=== PATIENT | male | born 1960 | race Caucasian/White ===

== ENCOUNTER 2019-12-01 15:00 | Inpatient (IN) | payer OTHER, SELFPAY ==
--- NOTE | ~2019-12-01 | XR_ITS ---
EXAMINATION: XR chest 1V portable DATE: 12/06/2019 05:45 INDICATION: COVID 19 pneumonia TECHNIQUE: frontal view of the chest was obtained. COMPARISON: Chest radiograph dated 12/05/2019 FINDINGS: No interval change in diffuse bilateral patchy airspace opacities. No pleural effusion or pneumothora x. The cardiomediastinal silhouette is normal. IMPRESSION: 1. Unchanged diffuse bilateral patchy airspace opacities consistent with pneumonia. Reviewed, dictated and finalized at location A. IMPRESSION: 1. Unchanged diffuse bilateral patchy airspace opacities consistent with pneumo juanita.
--- NOTE | ~2019-12-01 | XR_ITS ---
EXAMINATION: XR chest 1V portable DATE: 12/04/2019 05:28 INDICATION: TECHNIQUE: COMPARISON: Chest radiograph dated FINDINGS: No significant interval change in patchy bilateral airspace opacities. No pneumothorax or definitive pleural effusion. The cardiomediastinal silhouette is normal. IMPRESSION: 1. Unchanged diffuse bilateral lung disease consistent with given history of pneumonia. Reviewed, dictated and finalized at location A. IMPRESSION: 1. Unchanged diffuse bilateral lung disease consistent with given history of pn eumonia.
--- NOTE | ~2019-12-01 | XR_ITS ---
XR chest 1V portable DATE: 12/07/2019 05:51 INDICATION: Covid 19 pneumonia TECHNIQUE: Portable AP chest on 12/07/2019 at 0522 hours COMPARISON: 12/06/2019 portable AP chest at 0521 hours FINDINGS: There is patchy infiltrates throughout both lung soler, with little interval change since 12/06/2019. Heart size appears within normal limits. No pleural effusion or pneumothorax. Note tubes or lines noted. IMPRESSION: No similar change of patchy bilateral pulmonary infiltrates since 12/06/2019 Reviewed, dictated and finalized at location A.
--- NOTE | ~2019-12-01 | XR_ITS ---
EXAMINATION: XR chest 1V portable DATE: 12/03/2019 05:58 INDICATION: COVID 19 pneumonia TECHNIQUE: frontal view of the chest was obtained. COMPARISON: Chest radiograph dated 12/02/2019 FINDINGS: No significant interval change accounting for changes in patient positioning in patchy bilateral airs pace opacities. No pneumothorax or definitive pleural effusion. The cardiomediastinal silhouette is n ormal. IMPRESSION: 1. Unchanged diffuse bilateral lung disease consistent with given history of pneumonia. Reviewed, dictated and finalized at location A. IMPRESSION: 1. Unchanged diffuse bilateral lung disease consistent with given history of pn eumonia.
--- NOTE | ~2019-12-01 | US_ITS ---
EXAMINATION: US renal BI DATE: 12/08/2019 12:01 INDICATION: Hematuria. TECHNIQUE: Multiple ultrasound grayscale images of the kidneys were obtained. COMPARISON: None. FINDINGS: The right kidney measures 10.7 x 6.2 x 6.2 cm. The left kidney measures 10.6 x 5.9 x 5.5 cm. The kidn eys demonstrate normal parenchymal echogenicity. There is no hydronephrosis. The bladder is normal. IMPRESSION: 1. Normal kidneys. No hydronephrosis. Reviewed, dictated and finalized at location A.
--- NOTE | ~2019-12-01 | XR_ITS ---
XR chest 1V portable 12/02/2019 08:46 Indication: Pneumonia. Covid-19 Procedure: AP portable chest Comparison: 03/26/2017 Findings: Diffuse bilateral airspace disease. Cardiomegaly. No significant effusion or pneumothorax. Impression: 1: Diffuse bilateral airspace disease may represent pneumonia and/or edema. Reviewed, dictated and finalized at location B. Impression: 1: Diffuse bilateral airspace disease may represent pneumonia and/or edema.
--- NOTE | ~2019-12-01 | XR_ITS ---
EXAMINATION: XR chest 1V portable DATE: 12/05/2019 05:49 INDICATION: COVID 19 pneumonia TECHNIQUE: frontal view of the chest was obtained. COMPARISON: Chest radiograph dated 12/04/2019 through 12/02/2019 FINDINGS: Over the past 4 days there has been a gradual increase in diffuse bilateral patchy airspace opacities consistent with worsening pneumonia. No pleural effusion or pneumothorax. The cardiomediastinal silh ouette is normal. IMPRESSION: 1. Very gradual progression over the past 4 days in diffuse bilateral lung disease consistent with wo rsening pneumonia. Reviewed, dictated and finalized at location A. IMPRESSION: 1. Very gradual progression over the past 4 days in diffuse bilateral lung dise ase consistent with worsening pneumonia.
--- NOTE | 2019-12-01 15:25 | ADMGEN ---
This patient, Rico Cardenas, was admitted to Intensive Care Unit-4. Patient/family oriented to hospital policies and general routines including ID bracelet, bed and alarms, visiting hours, pain management, procedures, bathroom and other care routines, personal items, smoking policy, room service/diet, and visiting hours. Information on how to activate the Rapid Response Team has been discussed. Patient/Family are encouraged to report perceived risks to care and to ask questions if they do not understand what they are told or what they should do.
[2019-12-01 15:26] VITALS: BMI 45.1
[2019-12-01 16:00] VITALS: BP 139/79; PULSE 81; RESP 37; TEMP 37.7; O2SAT 98
--- NOTE | 2019-12-01 17:45 | PM.IMHP ---
H&P: HPI History of Present Illness Date/Time: 12/01/19 17:45 Chief complaint: COVID Pneumonia Narrative: Rico Cardenas is a 59-year-old male with hyperlipidemia and factor 5 Leiden mutation without history of venous thromboembolism who is being directly admitted to the hospitalist service from the emergency department at [facility] [place] for further treatment of COVID pneumonia. He developed symptoms of such early last week to include headache, congestion, nonproductive cough, shortness of breath, and fever up to 102?. On 11/26/2019 he tested positive for COVID at a [facility] urgent care and he continues to have a dry nonproductive cough and overwhelming fatigue with progressive shortness of breath. He presented to the ED this morning due to increasing shortness of breath, with anSpO2 of 66% on room air and a chest x-ray revealed bilateral pulmonary infiltrates consistent with pneumonia. He is being transferred in this setting for higher level of care. At the time of my evaluation he is feeling a bit better in the last 4 hours after receiving dexamethasone. In addition to the symptoms as detailed above, he has had a poor appetite with about a 15 lb weight loss and he also mentions painless hematuria this morning which has cleared throughout the day. He denies anosmia, dysgeusia, odynophagia, chest pain, pleuritic pain, palpitations, orthopnea, PND, lower extremity edema, nausea, vomiting, diarrhea, and dysuria. He has no history of venous thromboembolism. Review of Systems Review of Systems: Narrative: Twelve systems were reviewed with pertinent positives and negatives as per HPI. No exertional chest pain, pleuritic pain, orthopnea, PND, or lower extremity edema. No calf pain or tenderness. Despite being positive for factor 5 Leiden mutation he has no history of venous thromboembolism. Except as documented, all other systems were reviewed and are negative. [facility] Past Medical History Medical History (Updated 12/01/19 @ 20:04 by Sailaja Rocha PA-C) Factor 5 Leiden mutation, heterozygous Hyperlipidemia Osteoarthritis Skin cancer Surgical History Surgical History (Updated 12/01/19 @ 19:57 by Sailaja Rocha PA-C) History of arthroscopy of both knees History of left hip replacement History of right hip replacement (~2014) Status post cervical spinal fusion (~1994) C5-C6. Status post surgical removal of malignant neoplasm of skin Excision of several small basal cell carcinomas. Family History Family History Other Factor V Leiden Social History Social History (Updated 12/01/19 @ 19:57 by Sailaja Rocha PA-C) Social History: Surrogate decision maker: Cece Cardenas, spouse. Code status: Full code. Smoking status: Never smoker Second hand tobacco smoke exposure: No Alcohol intake: unknown Substance use: never Additional living arrangements comments: He and his recently moved to [place]. They have 2 grown children. Additional occupation/education comments: Employed at [employer]. Gender identity (if verbalized by the patient): Male Spiritual care concerns: No Meds Home Medications and Allergies Home Medications Medication Instructions Recorded Confirmed Type aspirin 81 mg PO DAILY 12/01/19 12/01/19 History atorvastatin 20 mg PO DAILY 12/01/19 12/01/19 History Allergies Allergy/AdvReac Type Severity Reaction Status Date / Time Penicillins Allergy Intermediate HIVES Verified 04/08/16 11:39 Vital Signs Vital Signs - 24 hr 12/01/19 16:00 Temperature 100 F H Pulse Rate 81 Respiratory Rate 37 H Blood Pressure 139/79 Pulse Oximetry 98 Exam Narrative: Exam Narrative: General: Moderately ill-appearing male in the semi-Sunshine position in bed in no acute distress. Weight: 147 kg. BMI: 45.2. HEENT: Pupils reactive. Extraocular motions intact.
[2019-12-01 18:00] VITALS: PULSE 81
[2019-12-01] MEDS: DEXAMETHASONE SOD PHOS INJ 4 MG/ML VIAL 6 MG IV PUSH (18:38)
[2019-12-01 20:00] VITALS: BP 139/77; PULSE 78; PULSE 80; RESP 35; TEMP 37.6; O2SAT 92
[2019-12-01 20:05] LABS: Hematocrit 38.3 % (42.0-52.0); Hemoglobin 13.1 g/dL (14.0-18.0); Mean Corpuscular HGB Conc 34.2 g/dl (32-36); Mean Corpuscular Hemoglobin 31.9 pg (26-34); Mean Corpuscular Volume 93.2 fl (80-100); Mean Platelet Volume 9.2 fl (7.4-10.4); Platelet Count Result 236 k/mm3 (150-375); Red Blood Count 4.11 M/mm3 (4.6-6.20); Red Cell Distribution Width 12.4 % (11.5-14.5); White Blood Count 14.1 K/mm3 (4.5-10.0)
[2019-12-01 20:17] LABS: D Dimer 1.09 ug/mL (<0.48)
[2019-12-01 20:20] LABS: Alanine Aminotransferase 47 U/L (4-50); Albumin Level 3.6 g/dL (3.5-5.1); Alkaline Phosphatase 96 U/L (38-126); Anion Gap 6 mmol/L (8-16); Aspartate Amino Transferase 52 U/L (17-59); Bilirubin,Total 0.8 mg/dL (0.2-1.3); Blood Urea Nitrogen 14 mg/dL (9-20); Calcium 8.4 mg/dL (8.4-10.2); Carbon Dioxide 32 mmol/L (22-30); Chloride 92 mmol/L (98-107); Estimated CRCL calculation 126 ml/min; Estimated Glomerular Filt Rate > 60; Glucose 200 mg/dL (75-110); Lactate Dehydrogenase 797 U/L (313-618); Potassium 3.9 mmol/L (3.4-5.0); Sodium 130 mmol/L (137-145)
[2019-12-01 20:35] LABS: Band Neutrophils Percent 8 % (0-6); Lymphocytes Absolute Manual 0.14 K/mm3 (1.1-4.5); Monocytes Absolute Manual 0.14 K/mm3 (0.1-0.90); Monocytes Percent Manual 1 % (3-9); Neutrophils Absolute Manual 13.81 K/mm3 (1.3-6.7); Neutrophils Percent Manual 90 % (46-73); Platelet Estimate Adequate (Adequate); Total Cells Counted 100
[2019-12-01 20:45] LABS: CRP 37.7 mg/dL (<1.0)
[2019-12-01] MEDS: REMDESIVIR 200 MG/NS 250 ML 200 MG/250 ML BAG 250 MG IVPB (21:31)
[2019-12-01 21:46] LABS: Add Urine Microscopic? YES; Appearance Urine Clear (Clear); Bacteria Urine Trace /hpf; Bilirubin Urine Negative (Negative); Blood Urine 3+ (Negative); Color Urine Yellow (Yellow); Glucose Urine UA Negative (Negative); Ketones Urine Negative (Negative); Leukocyte Esterase Ur Negative LEU/UL (Negative); Nitrate Urine Negative (Negative); Protein Urine 1+ mg/dL (Negative); Specific Grav Ur 1.009 (1.001-1.035); WBC Urine 0-3 /hpf
[2019-12-01 21:54] LABS: Creatinine Urine 41.5 mg/dL
[2019-12-01 21:59] LABS: Sodium Urine Random 29 meq/L
[2019-12-01 22:00] VITALS: PULSE 73
[2019-12-01 22:23] VITALS: O2SAT 94
[2019-12-02] VITALS (19 sets, daily range): BP systolic 110–156; BP diastolic 70–82; PULSE 61–79; RESP 19–38; TEMP 36.6–37.5; O2SAT 91–99
[2019-12-02 04:59] LABS: Alanine Aminotransferase 55 U/L (4-50)
[2019-12-02] MEDS: ATORVASTATIN 20 MG TABLET PO (08:17)
[2019-12-02] MEDS: ASPIRIN 81 MG CHEWABLE TABLET PO (08:17)
[2019-12-02] MEDS: DEXAMETHASONE SOD PHOS INJ 4 MG/ML VIAL 6 MG IV PUSH (08:17)
--- NOTE | 2019-12-02 08:41 | WPDCNINT ---
Assessment and Plan Assessment and plan (1) Acute respiratory failure with hypoxia: Code(s): J96.01 - Acute respiratory failure with hypoxia Status: Acute Assessment and Plan: patient with acute hypoxic respiratory failure likely related to COVID-19 pneumonia - patient was also febrile at home, has been started on azithromycin and ceftriaxone ( start date 12/01/2019) - continue high-flow oxygen therapy will with non-rebreather mask, maintain O2 sats greater 92% - complaints of cough, will add Tessalon Perles (2) Pneumonia due to COVID-19 virus: Code(s): U07.1 - COVID-19; J12.89 - Other viral pneumonia Status: Acute Assessment and Plan: patient positive for SARS-CoV-2 PCR, presents with COVID-19 pneumonia with hypoxia - continue antibiotics as above - bronchodilators - patient started on Remdesivir and dexamethasone - patient to receive 1 unit convalescent plasma - continue airborne, droplet and contact isolation /precautions - inflammatory markers are elevated, will continue to follow (3) Hematuria: Code(s): R31.9 - Hematuria, unspecified Status: Acute Assessment and Plan: resolved will continue to monitor if he develops any hematuria will have Urology evaluate the patient (4) DVT prophylaxis: Code(s): Z29.9 - Encounter for prophylactic measures, unspecified Status: Acute Assessment and Plan: continue Lovenox 40 mg SQ q.12 hours (5) Dietary counseling and surveillance: Code(s): Z71.3 - Dietary counseling and surveillance Status: Acute Assessment and Plan: patient on regular diet Additional Plan discussed with patient updated with his condition and plan of care. I answered all questions he is aware that he is receiving Remdesivir, dexamethasone and will be transfused 1 unit of convalescent plasma today code status: Full code critical care time spent: 45 minutes Due to a high probability of clinically significant, life threatening deterioration, the patient required my highest level of preparedness to intervene emergently and I personally spent this critical care time directly and personally managing the patient. This critical care time included obtaining a history; examining the patient; pulse oximetry; ordering and review of studies; arranging urgent treatment with development of a management plan; evaluation of patient's response to treatment; frequent reassessment; and discussions with other providers. It was exclusive of separately billable procedures and treating other patients and teaching time. Please see Assessment and Plan section and the rest of the note for further information on patient assessment and treatment [employer] Consult Note Consult date: 12/02/19 Time Seen: 07:19 Reason for consult: COVID-19 pneumonia, acute hypoxic respiratory failure HPI: Rico Cardenas is a 59 year old male with past medical history of factor 5 leiden mutation, hyperlipidemia, osteoarthritis, history of skin cancer status post surgical removal, [place] [facility] [place] [facility] with worsening symptoms of headache, congestion, nonproductive cough, shortness of breath and fevers up to 102? F. patient's oxygen requirements at the outside hospital increasing and so he was transferred to [facility] on 12/01/2019 for further management and higher level of care. In the ED at the outside hospital patient's O2 sats were 66% on room air and chest x-ray revealed bilateral pulmonary infiltrates consistent with pneumonia. Patient also complained of poor appetite and painless hematuria which cleared up during the day of admission. Patient was on 10-15 L high-flow O2 nasal cannula and overnight was hypoxic with increased oxygen requirements and currently on 85% FiO2, 60 L flow rate on Airvo therapy along with a non-rebreather mask. 12/02/2019: Patient seen and examined the ICU this morning, is awake, alert, joshua
[2019-12-02] MEDS: ENOXAPARIN 40 MG/0.4 ML SYRINGE SUB-Q ×2 (09:03→21:15)
[2019-12-02 09:22] LABS: INR 1.1; Prothrombin Time 13.4 Seconds (11.1-14.7)
[2019-12-02 09:24] LABS: Alanine Aminotransferase 67 U/L (4-50); Alkaline Phosphatase 115 U/L (38-126); Anion Gap 9 mmol/L (8-16); Aspartate Amino Transferase 71 U/L (17-59); Bilirubin,Total 0.8 mg/dL (0.2-1.3); Blood Urea Nitrogen 16 mg/dL (9-20); Calcium 8.9 mg/dL (8.4-10.2); Carbon Dioxide 33 mmol/L (22-30); Chloride 93 mmol/L (98-107); Estimated CRCL calculation 122 ml/min; Estimated Glomerular Filt Rate > 60; Glucose 166 mg/dL (75-110); Magnesium 2.6 mg/dL (1.6-2.3); Phosphorus 2.9 mg/dL (2.5-4.5); Sodium 135 mmol/L (137-145)
[2019-12-02 09:25] LABS: D Dimer 1.06 ug/mL (<0.48)
[2019-12-02 10:48] LABS: Lactate Dehydrogenase 886 U/L (313-618)
[2019-12-02 11:20] LABS: CRP 35.6 mg/dL (<1.0)
[2019-12-02] MEDS: BENZONATATE 100 MG CAPSULE 200 MG PO ×2 (12:22→17:15)
--- NOTE | 2019-12-02 17:52 | PM.IMPN ---
Progress Note: A&P Assessment and Plan (1) Acute respiratory failure with hypoxia: Code(s): J96.01 - Acute respiratory failure with hypoxia Status: Acute Assessment and Plan: secondary to COVID pneumonia. high-flow oxygen at present time. And will wean as tolerated. metered dose inhalers and p.o. prednisone (2) Bilateral pneumonia: Code(s): J18.9 - Pneumonia, unspecified organism Status: Acute Assessment and Plan: suspect off COVID pneumonia but has empirically placed on antibiotics initially also since has had fevers some 7 days. cultures and antigen markers pending (3) COVID-19: Code(s): U07.1 - COVID-19 Status: Acute Assessment and Plan: receiving Decadron (D#2), remdesivir(D#2), and convalescent plasma today (4) Hyponatremia: Code(s): E87.1 - Hypo-osmolality and hyponatremia Status: Acute Assessment and Plan: 4.0 and continue to monitor (5) Hematuria: Code(s): R31.9 - Hematuria, unspecified Status: Acute Assessment and Plan: few RBCs will on check renal sonogram or CT abdomen before discharge (6) Factor 5 Leiden mutation, heterozygous: Code(s): D68.51 - Activated protein C resistance Status: Acute Assessment and Plan: no history of DVT or PE in the past though there is family history. B.i.d. Lovenox for DVT prophylaxis (7) Hyperlipidemia: Code(s): E78.5 - Hyperlipidemia, unspecified Status: Inactive Assessment and Plan: continue statin Subjective Date/time seen: 12/02/19 17:52 Interval history: date of visit 12/01. 59-year-old white male with history hyperlipidemia and factor 5 Leiden mutation admitted from [facility] with respiratory failure and COVID pneumonia. Comfortable in bed now with high-flow oxygen. Appetite fair no distortion of smell or taste.. Dry cough Exam Narrative: Exam Narrative: blood pressure 156/70 pulse 74 sat 91% on high-flow O2 85% FiO2 afebrile General: Moderately ill-appearing male lying comfortably in bed. HEENT: Pupils reactive. sclera anicteric on high-flow O2 now. Neck: Supple. No JVD. Respiratory: Tachypneic but speaking in full sentences. He does not seem in any significant respiratory distress. Scattered crackles throughout both bases. Cardiovascular: Regular rate and rhythm with S1-S2. Gastrointestinal: Abdomen is soft, nontender, and nondistended with positive bowel sounds. Skin: Warm and dry. No rash or lesions Extremities: No cyanosis, clubbing, or edema. Radial and pedal pulses intact. Neurological: Alert. Cranial nerves 2-12 are grossly intact. No gross focal deficits to casual conversation. Psychiatric: Pleasant and cooperative with normal mood and affect. Judgment and insight intact. Objective Data Vital Signs Vital Signs: Vital Signs - 24 hr 12/01/19 18:00 12/01/19 20:00 12/01/19 22:00 Temperature 37.6 C H Pulse Rate 81 80 73 Respiratory Rate 35 H Blood Pressure 139/77 Pulse Oximetry 92 12/01/19 22:23 12/02/19 00:00 12/02/19 02:00 Temperature 37.5 C Pulse Rate 74 67 Respiratory Rate 23 H Blood Pressure 137/79 Pulse Oximetry 94 96 12/02/19 04:00 12/02/19 06:00 12/02/19 08:00 Temperature 37.3 C 36.6 C Pulse Rate 71 69 79 Respiratory Rate 34 H 22 H Blood Pressure 131/75 110/76 Pulse Oximetry 95 93 12/02/19 09:07 12/02/19 10:00 12/02/19 12:00 Temperature 36.6 C Pulse Rate 72 75 Respiratory Rate 24 H Blood Pressure 143/82 H Pulse Oximetry 93 94 12/02/19 14:00 12/02/19 16:00 Temperature 36.8 C Pulse Rate 67 74 Respiratory Rate 25 H 19 Blood Pressure 151/78 H 156/78 H Pulse Oximetry 99 91 Intake/Output Intake/Output: Intake & Output 11/29/19 11/30/19 12/01/19 12/02/19 23:59 23:59 23:59 23:59 Intake Total 810 1170 Output Total 790 1925 Balance 20 -755 Meds/Results Medications: Active Medications Generic Name Dos
[2019-12-02] MEDS: REMDESIVIR 100 MG/NS 250 ML 100 MG/250 ML BAG 250 MG IVPB (21:15)
[2019-12-02] MEDS: SODIUM CHLORIDE 0.9% IV 250 ML 999 ML (23:27)
[2019-12-03] VITALS (16 sets, daily range): BP systolic 113–150; BP diastolic 67–83; PULSE 53–65; RESP 18–32; TEMP 36.2–37.3; O2SAT 92–99
[2019-12-03 04:09] LABS: Basophils Percent Auto 0.1 % (0.2-1.2); Hematocrit 38.4 % (42.0-52.0); Hemoglobin 13.1 g/dL (14.0-18.0); Immature Granulocyte Percent A 0.8 % (0-0.5); Lymphocytes Absolute Auto 0.65 K/mm3 (0.9-3.2); Lymphocytes Percent Auto 5.4 % (18.3-44.2); Mean Corpuscular HGB Conc 34.1 g/dl (32-36); Mean Corpuscular Volume 93.7 fl (80-100); Mean Platelet Volume 9.3 fl (7.4-10.4); Monocytes Absolute Auto 0.7 K/mm3 (0.1-0.6); Neutrophils Absolute Auto 10.5 K/mm3 (1.3-6.7); Neutrophils Percent Auto 87.7 % (45.5-73.1); Platelet Count Result 331 k/mm3 (150-375); Red Cell Distribution Width 12.6 % (11.5-14.5)
[2019-12-03 04:24] LABS: Alanine Aminotransferase 121 U/L (4-50); Albumin Level 3.4 g/dL (3.5-5.1); Alkaline Phosphatase 97 U/L (38-126); Anion Gap 4 mmol/L (8-16); Aspartate Amino Transferase 111 U/L (17-59); Bilirubin,Total 0.6 mg/dL (0.2-1.3); Blood Urea Nitrogen 20 mg/dL (9-20); Calcium 8.4 mg/dL (8.4-10.2); Carbon Dioxide 34 mmol/L (22-30); Chloride 94 mmol/L (98-107); Creatine Kinase 45 U/L (55-170); Estimated CRCL calculation 122 ml/min; Estimated Glomerular Filt Rate > 60; Glucose 150 mg/dL (75-110); Lactate Dehydrogenase 796 U/L (313-618); Magnesium 2.7 mg/dL (1.6-2.3); Phosphorus 3.3 mg/dL (2.5-4.5); Potassium 4.1 mmol/L (3.4-5.0); Sodium 132 mmol/L (137-145)
[2019-12-03 04:26] LABS: INR 1.1; Prothrombin Time 13.6 Seconds (11.1-14.7)
[2019-12-03 04:27] LABS: Partial Thromboplastin Time 29.2 SECONDS (22.3-36.8)
[2019-12-03 04:34] LABS: CRP 18.4 mg/dL (<1.0)
[2019-12-03 04:36] LABS: D Dimer 0.61 ug/mL (<0.48)
[2019-12-03] MEDS: ASPIRIN 81 MG CHEWABLE TABLET PO (08:15)
[2019-12-03] MEDS: BENZONATATE 100 MG CAPSULE 200 MG PO ×3 (08:15→17:21)
[2019-12-03] MEDS: ENOXAPARIN 40 MG/0.4 ML SYRINGE SUB-Q ×2 (08:15→20:34)
[2019-12-03] MEDS: ATORVASTATIN 20 MG TABLET PO (08:15)
[2019-12-03] MEDS: DEXAMETHASONE SOD PHOS INJ 4 MG/ML VIAL 6 MG IV PUSH (08:16)
--- NOTE | 2019-12-03 08:16 | WPDINTPN ---
Progress Note: A&P Assessment and Plan (1) Acute respiratory failure with hypoxia: Code(s): J96.01 - Acute respiratory failure with hypoxia Status: Acute Assessment and Plan: patient with acute hypoxic respiratory failure likely related to COVID-19 pneumonia - patient was also febrile at home, has been started on azithromycin and ceftriaxone ( start date 12/01/2019) - continue high-flow oxygen therapy will with non-rebreather mask, maintain O2 sats greater 92% - complaints of cough now with congestion and sputum production, continue Tessalon Perles, will add Mucinex (2) Pneumonia due to COVID-19 virus: Code(s): U07.1 - COVID-19; J12.89 - Other viral pneumonia Status: Acute Assessment and Plan: patient positive for SARS-CoV-2 PCR, presents with COVID-19 pneumonia with hypoxia - continue antibiotics as above - bronchodilators - patient started on Remdesivir and dexamethasone - received convalescent plasma on 12/02/2019 - continue airborne, droplet and contact isolation /precautions - inflammatory markers trending down, will continue to follow (3) Hematuria: Code(s): R31.9 - Hematuria, unspecified Status: Acute Assessment and Plan: resolved -will continue to monitor if he develops any hematuria will have Urology evaluate the patient (4) DVT prophylaxis: Code(s): Z29.9 - Encounter for prophylactic measures, unspecified Status: Acute Assessment and Plan: continue Lovenox 40 mg SQ q.12 hours (5) Dietary counseling and surveillance: Code(s): Z71.3 - Dietary counseling and surveillance Status: Acute Assessment and Plan: patient on regular diet Additional Plan discussed with patient updated with his condition and plan of care. I answered all questions code status: Full code critical care time spent: 33 minutes Due to a high probability of clinically significant, life threatening deterioration, the patient required my highest level of preparedness to intervene emergently and I personally spent this critical care time directly and personally managing the patient. This critical care time included obtaining a history; examining the patient; pulse oximetry; ordering and review of studies; arranging urgent treatment with development of a management plan; evaluation of patient's response to treatment; frequent reassessment; and discussions with other providers. It was exclusive of separately billable procedures and treating other patients and teaching time. Please see Assessment and Plan section and the rest of the note for further information on patient assessment and treatment Subjective Date/time seen: 12/03/19 08:16 Interval history: Reason for consult: COVID-19 pneumonia, acute hypoxic respiratory failure 12/03/2019: Patient remains on high-flow therapy, 85% FiO2, 60 L flow rate. Patient complains dry cough and states he may be starting producing some sputum. Denies any chest pain, abdominal pain, nausea, vomiting, diarrhea. No loss taste or smell. Patient is short of breath with exertion. LFTs slightly worsening. Urine output has been adequate and patient is afebrile hemodynamically stable Review of Systems Review of Systems: All systems reviewed & are unremarkable except as noted in HPI and below Exam Const: General: comfortable and no acute distress HENMT: Other: high-flow oxygen therapy via nasal cannula and a non-rebreather mask in place Eyes: Sclera: sclerae normal Pupils: Equal, round and reactive pupils present Neck: Neck: supple Resp: Effort & Inspection: normal respiratory effort Auscultation: rales, no wheezes and diminished lung sounds GI: Inspection: non-distended GI Palp: Yes Soft to palpation and No Tenderness to palpation present (GI) Auscultation: normal bowel sounds : Other: deferred Urinary Catheter: Urinary Catheter: urine dark Skin: General skin exam: normal color and no
[2019-12-03] MEDS: guaiFENesin 600 MG/DEXTROMETHORPHAN 30 MG SR TAB 12 HR 1 TAB PO ×2 (09:38→20:34)
--- NOTE | 2019-12-03 16:36 | PM.IMPN ---
Progress Note: A&P Assessment and Plan (1) Acute respiratory failure with hypoxia: Code(s): J96.01 - Acute respiratory failure with hypoxia Status: Acute Assessment and Plan: secondary to COVID pneumonia. high-flow oxygen at present time. And will wean as tolerated. metered dose inhalers and p.o dexamethasone (2) Bilateral pneumonia: Code(s): J18.9 - Pneumonia, unspecified organism Status: Acute Assessment and Plan: suspect all COVID pneumonia but has empirically placed on antibiotics initially also since has had fevers some 7 days. antigen markers pending (3) COVID-19: Code(s): U07.1 - COVID-19 Status: Acute Assessment and Plan: receiving Decadron (D#3), remdesivir(D#3), and convalescent plasma 12/01 (4) Hyponatremia: Code(s): E87.1 - Hypo-osmolality and hyponatremia Status: Acute Assessment and Plan: Na 132 today and K 4.1 and continue to monitor (5) Hematuria: Code(s): R31.9 - Hematuria, unspecified Status: Acute Assessment and Plan: few RBCs will on check renal sonogram or CT abdomen before discharge (6) Factor 5 Leiden mutation, heterozygous: Code(s): D68.51 - Activated protein C resistance Status: Acute Assessment and Plan: no history of DVT or PE in the past though there is family history. B.i.d. Lovenox for DVT prophylaxis (7) Hyperlipidemia: Code(s): E78.5 - Hyperlipidemia, unspecified Status: Inactive Assessment and Plan: continue statin Subjective Date/time seen: 12/03/19 16:36 Interval history: date of visit 12/02. 59-year-old white male with history hyperlipidemia and factor 5 Leiden mutation admitted from [facility] with respiratory failure and COVID pneumonia. Comfortable in bed now with high-flow oxygen. Appetite better and feels better overall .. Dry cough Exam Narrative: Exam Narrative: blood pressure 134/76 pulse 60 sat 92% on high-flow O2 75% at 50 L, afebrile General: lying comfortably in bed. HEENT: Pupils reactive. sclera anicteric on high-flow O2 now. Neck: Supple. No JVD. Respiratory: less Tachypneic. He does not seem in any significant respiratory distress. Scattered crackles throughout both bases. Cardiovascular: Regular rate and rhythm with S1-S2. Gastrointestinal: Abdomen is soft, nontender, and nondistended with positive bowel sounds. Skin: Warm and dry. No rash or lesions Extremities: No edema. Radial and pedal pulses intact. Neurological: Alert. . No gross focal deficits Psychiatric: Pleasant and cooperative with normal mood and affect. Judgment and insight intact. Objective Data Vital Signs Vital Signs: Vital Signs - 24 hr 12/02/19 18:00 12/02/19 19:46 12/02/19 20:00 Temperature 37.3 C Pulse Rate 71 74 Respiratory Rate 32 H 24 H Blood Pressure 152/78 H 117/73 Pulse Oximetry 93 93 96 12/02/19 20:30 12/02/19 22:00 12/02/19 23:10 Temperature Pulse Rate 70 70 62 Respiratory Rate 22 H 35 H 28 H Blood Pressure 125/73 Pulse Oximetry 96 98 98 12/02/19 23:27 12/02/19 23:43 12/02/19 23:51 Temperature 37.1 C 37.2 C 37.2 C Pulse Rate 62 63 61 Respiratory Rate 38 H 28 H 27 H Blood Pressure 121/70 120/76 129/73 Pulse Oximetry 94 94 96 12/03/19 00:00 12/03/19 02:00 12/03/19 04:00 Temperature 37.3 C 36.8 C Pulse Rate 60 59 L 62 Respiratory Rate 23 H 18 32 H Blood Pressure 121/68 126/78 116/73 Pulse Oximetry 97 93 94 12/03/19 06:00 12/03/19 07:46 12/03/19 08:00 Temperature 36.2 C L Pulse Rate 62 59 L 59 L Respiratory Rate 19 26 H 21 H Blood Pressure 114/75 150/83 H Pulse Oximetry 93 93 93 12/03/19 10:00 12/03/19 12:00 12/03/19 14:00 Temperature 36.6 C Pulse Rate 62 57 L 57 L Respiratory Rate 23 H 29 H 27 H Blood Pressure 113/70 123/72 117/67 Pulse Oximetry 96 93 94 12/03/19 15:30 12/03/19 15:42 Temperature Pulse Rate 60 Respiratory Rate 22 H Blood
[2019-12-03] MEDS: REMDESIVIR 100 MG/NS 250 ML 100 MG/250 ML BAG 250 MG IVPB (22:09)
[2019-12-04] VITALS (18 sets, daily range): BP systolic 109–138; BP diastolic 65–81; PULSE 46–79; RESP 2–29; TEMP 36.3–36.8; O2SAT 90–100
[2019-12-04 04:29] LABS: Hematocrit 39.5 % (42.0-52.0); Hemoglobin 13.3 g/dL (14.0-18.0); Mean Corpuscular HGB Conc 33.7 g/dl (32-36); Mean Corpuscular Hemoglobin 31.9 pg (26-34); Mean Corpuscular Volume 94.7 fl (80-100); Mean Platelet Volume 9.1 fl (7.4-10.4); Platelet Count Result 398 k/mm3 (150-375); Red Blood Count 4.17 M/mm3 (4.6-6.20); Red Cell Distribution Width 12.7 % (11.5-14.5); White Blood Count 10.6 K/mm3 (4.5-10.0)
[2019-12-04 04:40] LABS: INR 1.1; Prothrombin Time 13.9 Seconds (11.1-14.7)
[2019-12-04 04:41] LABS: Anion Gap 7 mmol/L (8-16); Blood Urea Nitrogen 20 mg/dL (9-20); Calcium 8.2 mg/dL (8.4-10.2); Carbon Dioxide 30 mmol/L (22-30); Chloride 98 mmol/L (98-107); Estimated CRCL calculation 121 ml/min; Estimated Glomerular Filt Rate > 60; Glucose 129 mg/dL (75-110); Magnesium 2.5 mg/dL (1.6-2.3); Partial Thromboplastin Time 27.1 SECONDS (22.3-36.8); Phosphorus 3.5 mg/dL (2.5-4.5); Potassium 4.3 mmol/L (3.4-5.0); Sodium 135 mmol/L (137-145)
[2019-12-04] MEDS: ENOXAPARIN 40 MG/0.4 ML SYRINGE SUB-Q ×2 (07:42→20:05)
[2019-12-04] MEDS: ATORVASTATIN 20 MG TABLET PO (07:43)
[2019-12-04] MEDS: BENZONATATE 100 MG CAPSULE 200 MG PO ×3 (07:43→17:12)
[2019-12-04] MEDS: DEXAMETHASONE SOD PHOS INJ 4 MG/ML VIAL 6 MG IV PUSH (07:43)
[2019-12-04] MEDS: guaiFENesin 600 MG/DEXTROMETHORPHAN 30 MG SR TAB 12 HR 1 TAB PO ×2 (07:43→20:06)
[2019-12-04] MEDS: ASPIRIN 81 MG CHEWABLE TABLET PO (07:44)
--- NOTE | 2019-12-04 08:56 | WPDINTPN ---
Progress Note: A&P Assessment and Plan (1) Acute respiratory failure with hypoxia: Code(s): J96.01 - Acute respiratory failure with hypoxia Status: Acute Assessment and Plan: patient with acute hypoxic respiratory failure likely related to COVID-19 pneumonia - patient was also febrile at home, has been started on azithromycin and ceftriaxone ( start date 12/01/2019) - continue high-flow oxygen therapy will with non-rebreather mask, maintain O2 sats greater 92% - complaints of cough now with congestion and sputum production, continue Tessalon Perles and Mucinex (2) Pneumonia due to COVID-19 virus: Code(s): U07.1 - COVID-19; J12.89 - Other viral pneumonia Status: Acute Assessment and Plan: patient positive for SARS-CoV-2 PCR, presents with COVID-19 pneumonia with hypoxia - continue antibiotics as above - bronchodilators - patient started on Remdesivir and dexamethasone - received convalescent plasma on 12/02/2019 - continue airborne, droplet and contact isolation /precautions - inflammatory markers trending down, will continue to follow (3) Hematuria: Code(s): R31.9 - Hematuria, unspecified Status: Acute Assessment and Plan: Resolved -will continue to monitor if he develops any hematuria will have Urology evaluate the patient (4) DVT prophylaxis: Code(s): Z29.9 - Encounter for prophylactic measures, unspecified Status: Acute Assessment and Plan: continue Lovenox 40 mg SQ q.12 hours (5) Dietary counseling and surveillance: Code(s): Z71.3 - Dietary counseling and surveillance Status: Acute Assessment and Plan: patient on regular diet Additional Plan discussed with patient updated with his condition and plan of care. I answered all questions code status: Full code critical care time spent: 32 minutes Due to a high probability of clinically significant, life threatening deterioration, the patient required my highest level of preparedness to intervene emergently and I personally spent this critical care time directly and personally managing the patient. This critical care time included obtaining a history; examining the patient; pulse oximetry; ordering and review of studies; arranging urgent treatment with development of a management plan; evaluation of patient's response to treatment; frequent reassessment; and discussions with other providers. It was exclusive of separately billable procedures and treating other patients and teaching time. Please see Assessment and Plan section and the rest of the note for further information on patient assessment and treatment Subjective Date/time seen: 12/04/19 08:56 Interval history: Reason for consult: COVID-19 pneumonia, acute hypoxic respiratory failure 12/04/2019: Patient remains on high-flow therapy, 80% FiO2, 60 L flow rate. OFF a non-rebreather with improvement in O2 sats. Patient continues to have cough and says the Mucinex and Tessalon Perles are helping with that . Denies any chest pain, abdominal pain, nausea, vomiting, diarrhea. No loss taste or smell. Patient is short of breath with exertion. Urine output has been adequate and patient is afebrile hemodynamically stable Review of Systems Review of Systems: All systems reviewed & are unremarkable except as noted in HPI and below Exam Const: General: comfortable and no acute distress HENMT: Mouth: Yes moist mucous membranes Other: high-flow oxygen therapy via nasal cannula Eyes: Sclera: sclerae normal Pupils: Equal, round and reactive pupils present Neck: Neck: supple Resp: Effort & Inspection: normal respiratory effort Auscultation: rales, no wheezes and diminished lung sounds Cardio: Rate: regular rate and bradycardic GI: Inspection: non-distended GI Palp: Yes Soft to palpation and No Tenderness to palpation present (GI) Auscultation: normal bowel sounds : Other: deferred Urinary Catheter
[2019-12-04 10:04] LABS: Alanine Aminotransferase 103 U/L (4-50); Albumin Level 3.4 g/dL (3.5-5.1); Alkaline Phosphatase 87 U/L (38-126); Anion Gap 7 mmol/L (8-16); Aspartate Amino Transferase 62 U/L (17-59); Bilirubin,Total 0.7 mg/dL (0.2-1.3); Blood Urea Nitrogen 20 mg/dL (9-20); Calcium 8.4 mg/dL (8.4-10.2); Carbon Dioxide 30 mmol/L (22-30); Chloride 96 mmol/L (98-107); Estimated CRCL calculation 120 ml/min; Estimated Glomerular Filt Rate > 60; Glucose 121 mg/dL (75-110); Potassium 4.4 mmol/L (3.4-5.0); Sodium 133 mmol/L (137-145)
[2019-12-04] MEDS: ALBUTEROL SULFATE (*SP) AEROSOL 1 PUFF 2 PUFF INHALATION ×3 (10:38→20:33)
[2019-12-04] MEDS: ALBUTEROL SULFATE (*SP) INHALER 1 PUFF (10:38)
[2019-12-04 14:09] LABS: Pneumococcal Antigen Urine Not Detected (Not Detected)
--- NOTE | 2019-12-04 16:32 | PM.IMPN ---
Progress Note: A&P Assessment and Plan (1) Acute respiratory failure with hypoxia: Code(s): J96.01 - Acute respiratory failure with hypoxia Status: Acute Assessment and Plan: secondary to COVID pneumonia. high-flow oxygen at present time. And will continue to wean as tolerated. metered dose inhalers and p.o dexamethasone (2) Bilateral pneumonia: Code(s): J18.9 - Pneumonia, unspecified organism Status: Acute Assessment and Plan: suspect all COVID pneumonia but has empirically placed on antibiotics initially(D#4) also since has had fevers some 7 days. antigen markers pending (3) COVID-19: Code(s): U07.1 - COVID-19 Status: Acute Assessment and Plan: receiving Decadron (D#4), remdesivir(D#4), and convalescent plasma 12/01 (4) Hyponatremia: Code(s): E87.1 - Hypo-osmolality and hyponatremia Status: Acute Assessment and Plan: Na 135 today and continue to monitor (5) Hematuria: Code(s): R31.9 - Hematuria, unspecified Status: Acute Assessment and Plan: few RBCs will on check renal sonogram or CT abdomen before discharge (6) Factor 5 Leiden mutation, heterozygous: Code(s): D68.51 - Activated protein C resistance Status: Acute Assessment and Plan: no history of DVT or PE in the past though there is family history. B.i.d. Lovenox for DVT prophylaxis (7) Hyperlipidemia: Code(s): E78.5 - Hyperlipidemia, unspecified Status: Inactive Assessment and Plan: continue statin Subjective Date/time seen: 12/04/19 16:32 Interval history: date of visit 12/03. 59-year-old white male with history hyperlipidemia and factor 5 Leiden mutation admitted from [facility] with respiratory failure and COVID pneumonia. Comfortable in bed now with high-flow oxygen. Appetite better and feels better overall .. cough a little more productive Exam Narrative: Exam Narrative: blood pressure 118/74 pulse 80 sat 94% on high-flow O2 65% at 50 L, afebrile General: lying comfortably in bed. HEENT: Pupils reactive. sclera anicteric on high-flow O2 now. Neck: Supple. No JVD. Respiratory: . He does not seem in any significant respiratory distress. Scattered crackles throughout both bases still. Cardiovascular: Regular rate and rhythm with S1-S2. Gastrointestinal: Abdomen is soft, nontender, and nondistended with positive bowel sounds. Skin: Warm and dry. No rash or lesions Extremities: No edema. Radial and pedal pulses intact. Neurological: Alert. . No gross focal deficits Psychiatric: Pleasant and cooperative with normal mood and affect. Judgment and insight intact. Objective Data Vital Signs Vital Signs: Vital Signs - 24 hr 12/03/19 18:00 12/03/19 20:00 12/03/19 21:23 Temperature 37.1 C Pulse Rate 58 L 59 L 63 Respiratory Rate 31 H 31 H 22 H Blood Pressure 128/82 120/74 Pulse Oximetry 99 93 93 12/03/19 22:00 12/04/19 00:00 12/04/19 02:00 Temperature 36.8 C Pulse Rate 53 L 51 L 52 L Respiratory Rate 20 22 H 25 H Blood Pressure 130/73 135/81 137/73 Pulse Oximetry 94 92 95 12/04/19 02:40 12/04/19 04:00 12/04/19 06:00 Temperature 36.4 C Pulse Rate 56 L 65 48 L Respiratory Rate 24 H 19 23 H Blood Pressure 133/70 123/72 Pulse Oximetry 92 90 95 12/04/19 07:30 12/04/19 08:00 12/04/19 10:00 Temperature 36.3 C L Pulse Rate 59 L 49 L 61 Respiratory Rate 21 H 13 24 H Blood Pressure 120/72 109/65 Pulse Oximetry 94 100 93 12/04/19 10:46 12/04/19 11:41 12/04/19 12:00 Temperature 36.6 C Pulse Rate 63 72 Respiratory Rate 29 H 24 H Blood Pressure 116/80 Pulse Oximetry 93 94 94 12/04/19 14:00 12/04/19 16:00 Temperature 36.6 C Pulse Rate 57 L 79 Respiratory Rate 21 H 24 H Blood Pressure 117/74 118/75 Pulse Oximetry 98 95 Intake/Output Intake/Output: Intake & Output 12/01/19 12/02/19 12/03/19 12/04/19 23:59 23:59 23:59 23:59 Intake T
[2019-12-04] MEDS: REMDESIVIR 100 MG/NS 250 ML 100 MG/250 ML BAG 250 MG IVPB (20:06)
[2019-12-05] VITALS (18 sets, daily range): BP systolic 104–126; BP diastolic 56–82; PULSE 54–663; RESP 14–32; TEMP 36.1–37.3; O2SAT 90–97
[2019-12-05 05:49] LABS: Osmolality, Urine 271 mOsm/kg (50-1200)
[2019-12-05 05:59] LABS: Hemoglobin 13.4 g/dL (14.0-18.0); Mean Corpuscular HGB Conc 33.5 g/dl (32-36); Mean Corpuscular Volume 95.5 fl (80-100); Mean Platelet Volume 9.2 fl (7.4-10.4); Platelet Count Result 447 k/mm3 (150-375); Red Blood Count 4.19 M/mm3 (4.6-6.20); Red Cell Distribution Width 12.7 % (11.5-14.5)
[2019-12-05 06:30] LABS: Alanine Aminotransferase 86 U/L (4-50); Albumin Level 3.5 g/dL (3.5-5.1); Alkaline Phosphatase 92 U/L (38-126); Anion Gap 6 mmol/L (8-16); Aspartate Amino Transferase 48 U/L (17-59); Bilirubin,Total 0.7 mg/dL (0.2-1.3); Blood Urea Nitrogen 17 mg/dL (9-20); CRP 5.2 mg/dL (<1.0); Calcium 8.5 mg/dL (8.4-10.2); Carbon Dioxide 32 mmol/L (22-30); Chloride 96 mmol/L (98-107); Estimated CRCL calculation 92 ml/min; Estimated Glomerular Filt Rate > 60; Glucose 99 mg/dL (75-110); Lactate Dehydrogenase 676 U/L (313-618); Magnesium 2.3 mg/dL (1.6-2.3); Phosphorus 3.5 mg/dL (2.5-4.5); Potassium 4.2 mmol/L (3.4-5.0); Sodium 134 mmol/L (137-145)
[2019-12-05 06:36] LABS: Prothrombin Time 13.1 Seconds (11.1-14.7)
[2019-12-05 06:50] LABS: D Dimer 0.65 ug/mL (<0.48)
[2019-12-05] MEDS: ENOXAPARIN 40 MG/0.4 ML SYRINGE SUB-Q (08:18)
[2019-12-05] MEDS: BENZONATATE 100 MG CAPSULE 200 MG PO ×3 (08:18→17:15)
[2019-12-05] MEDS: ASPIRIN 81 MG CHEWABLE TABLET PO (08:18)
[2019-12-05] MEDS: guaiFENesin 600 MG/DEXTROMETHORPHAN 30 MG SR TAB 12 HR 1 TAB PO ×2 (08:18→20:19)
[2019-12-05] MEDS: DEXAMETHASONE SOD PHOS INJ 4 MG/ML VIAL 6 MG IV PUSH (08:18)
[2019-12-05] MEDS: ATORVASTATIN 20 MG TABLET PO (08:19)
[2019-12-05 10:10] LABS: Alveolar/Arterial O2 Gradient 360.2 mmHg; Base Excess ABG 0.8 mEq/l (+/-2.0); Fractional Inspired Oxygen 65 %; Oxygen Saturation ABG 95.7 % (95.0-100.0); Oxyhemoglobin 93.8 % THb (90.0-100.0); PO2 ABG 70.6 mmHg (80.0-100.0); PO2 FiO2 Ratio Arterial Blood 1.09 %; Total Hemoglobin 13.6 g/dL (12.0-18.0); pH ABG 7.502 (7.350-7.450)
[2019-12-05 10:14] LABS: Modified Allen's Test Pass; Site Drawn RIGHT RADIAL
[2019-12-05 10:15] LABS: Device HIGH FLOW THERAPY
--- NOTE | 2019-12-05 12:00 | WPDINTPN ---
Progress Note: A&P Assessment and Plan (1) Acute respiratory failure with hypoxia: Code(s): J96.01 - Acute respiratory failure with hypoxia Status: Acute Assessment and Plan: patient with acute hypoxic respiratory failure likely related to COVID-19 pneumonia - patient was also febrile at home, has been started on azithromycin and ceftriaxone ( start date 12/01/2019) - continue high-flow oxygen therapy will with non-rebreather mask, maintain O2 sats greater 92%. Will continue to wean oxygen if tolerated. - complaints of cough now with congestion and sputum production, continue Tessalon Perles and Mucinex I will give a dose of Lasix today. (2) Pneumonia due to COVID-19 virus: Code(s): U07.1 - COVID-19; J12.89 - Other viral pneumonia Status: Acute Assessment and Plan: patient positive for SARS-CoV-2 PCR, presents with COVID-19 pneumonia with hypoxia - continue antibiotics as above - bronchodilators - patient started on Remdesivir and dexamethasone. he will finish remidisivir course today. - received convalescent plasma on 12/02/2019 - continue airborne, droplet and contact isolation /precautions - inflammatory markers trending down, will continue to follow (3) Hematuria: Code(s): R31.9 - Hematuria, unspecified Status: Acute Assessment and Plan: Resolved -will continue to monitor if he develops any hematuria will have Urology evaluate the patient (4) DVT prophylaxis: Code(s): Z29.9 - Encounter for prophylactic measures, unspecified Status: Acute Assessment and Plan: continue Lovenox 40 mg SQ q.12 hours (5) Dietary counseling and surveillance: Code(s): Z71.3 - Dietary counseling and surveillance Status: Acute Assessment and Plan: patient on regular diet Additional Plan discussed with patient updated with his condition and plan of care. I answered all questions code status: Full code critical care time spent: 32 minutes Due to a high probability of clinically significant, life threatening deterioration, the patient required my highest level of preparedness to intervene emergently and I personally spent this critical care time directly and personally managing the patient. This critical care time included obtaining a history; examining the patient; pulse oximetry; ordering and review of studies; arranging urgent treatment with development of a management plan; evaluation of patient's response to treatment; frequent reassessment; and discussions with other providers. It was exclusive of separately billable procedures and treating other patients and teaching time. Please see Assessment and Plan section and the rest of the note for further information on patient assessment and treatment Subjective Date/time seen: 12/05/19 12:00 He has told me that his shortness of breath has improved significantly. He is feeling much better now. He was on 65% FiO2 and 50 L with high-flow. His bicarb was a bit on the higher side on BMP. An ABG was performed which did not show any significant hypercarbic respiratory failure. He had a net positive fluid balance of 750 cc over the last 24 hours. He remained afebrile. His inflammatory markers are trending down including LDH, ferritin and CRP. Chest x-ray still with bilateral severe airspace disease. He will finish remdisivir course today. He is currently on steroid. Interval history: 59-year-old white male with history hyperlipidemia and factor 5 Leiden mutation admitted from [facility] with respiratory failure and COVID pneumonia. Comfortable in bed now with high-flow oxygen. Review of Systems Review of Systems: All systems reviewed & are unremarkable except as noted in HPI and below Exam Const: General: comfortable and no acute distress HENMT: Mouth: Yes moist mucous membranes Other: high-flow oxygen therapy via nasal cannula Eyes: Sclera
[2019-12-05] MEDS: FUROSEMIDE INJ 40 MG/4 ML VIAL IV PUSH (12:16)
[2019-12-05] MEDS: ALBUTEROL SULFATE (*SP) AEROSOL 1 PUFF 2 PUFF INHALATION ×3 (13:05→21:45)
--- NOTE | 2019-12-05 15:45 | PM.IMPN ---
Progress Note: A&P Assessment and Plan (1) Acute respiratory failure with hypoxia: Code(s): J96.01 - Acute respiratory failure with hypoxia Status: Acute Assessment and Plan: secondary to COVID pneumonia. weaned to 10L NC now. And will continue to wean as tolerated. metered dose inhalers and p.o dexamethasone (2) Bilateral pneumonia: Code(s): J18.9 - Pneumonia, unspecified organism Status: Acute Assessment and Plan: suspect all COVID pneumonia but has empirically placed on antibiotics initially(D#5) also since has had fevers some 7 days. antigen markers strep negative and Legionella still pending (3) COVID-19: Code(s): U07.1 - COVID-19 Status: Acute Assessment and Plan: receiving Decadron (D#5), remdesivir(D#5), and convalescent plasma 12/01 (4) Hyponatremia: Code(s): E87.1 - Hypo-osmolality and hyponatremia Status: Acute Assessment and Plan: Na 134 today and continue to monitor (5) Hematuria: Code(s): R31.9 - Hematuria, unspecified Status: Acute Assessment and Plan: few RBCs will on check renal sonogram or CT abdomen before discharge (6) Factor 5 Leiden mutation, heterozygous: Code(s): D68.51 - Activated protein C resistance Status: Acute Assessment and Plan: no history of DVT or PE in the past though there is family history. B.i.d. Lovenox for DVT prophylaxis (7) Hyperlipidemia: Code(s): E78.5 - Hyperlipidemia, unspecified Status: Inactive Assessment and Plan: continue statin Subjective Date/time seen: 12/05/19 15:45 Interval history: date of visit 12/04. 59-year-old white male with history hyperlipidemia and factor 5 Leiden mutation admitted from [facility] with respiratory failure and COVID pneumonia. Comfortable in bed now with high-flow oxygen. Appetite better and feels better overall .. cough a little more productive Exam Narrative: Exam Narrative: blood pressure 112/72 pulse 72 sat 92% on 10 L NC, afebrile General: lying comfortably in bed. HEENT: Pupils reactive. sclera anicteric . Neck: Supple. No JVD. Respiratory: . He does not seem in any significant respiratory distress. Basilar crackles less Cardiovascular: Regular rate and rhythm with S1-S2. Gastrointestinal: Abdomen is soft, nontender, and nondistended with positive bowel sounds. Skin: Warm and dry. No rash or lesions Extremities: No edema. Radial and pedal pulses intact. Neurological: Alert. . No gross focal deficits Psychiatric: Pleasant and cooperative with normal mood and affect. Judgment and insight intact. Objective Data Vital Signs Vital Signs: Vital Signs - 24 hr 12/04/19 16:00 12/04/19 17:49 12/04/19 18:00 Temperature 36.6 C Pulse Rate 79 57 L 53 L Respiratory Rate 24 H 28 H Blood Pressure 118/75 125/69 Pulse Oximetry 95 96 12/04/19 20:00 12/04/19 20:36 12/04/19 22:00 Temperature 36.7 C Pulse Rate 76 58 L Respiratory Rate 20 2 L Blood Pressure 138/78 110/79 Pulse Oximetry 94 92 97 12/05/19 00:00 12/05/19 02:00 12/05/19 04:00 Temperature 36.4 C L 36.6 C Pulse Rate 54 L 57 L 55 L Respiratory Rate 27 H 28 H 24 H Blood Pressure 111/64 116/56 L 104/64 Pulse Oximetry 95 93 92 12/05/19 06:00 12/05/19 08:00 12/05/19 08:40 Temperature 37.3 C Pulse Rate 57 L 70 73 Respiratory Rate 22 H 14 32 H Blood Pressure 113/66 121/68 Pulse Oximetry 92 97 97 12/05/19 10:00 12/05/19 12:00 12/05/19 13:06 Temperature 37.2 C Pulse Rate 76 64 73 Respiratory Rate 25 H 30 H 15 Blood Pressure 106/72 104/72 Pulse Oximetry 93 97 92 12/05/19 14:00 12/05/19 14:47 Temperature Pulse Rate 72 Respiratory Rate 22 H Blood Pressure 112/73 Pulse Oximetry 93 93 Intake/Output Intake/Output: Intake & Output 12/02/19 12/03/19 12/04/19 12/05/19 23:59 23:59 23:59 23:59 Intake Total 2340 2180 2220 1430 Output Total 2425 2475 1625 25
[2019-12-05] MEDS: REMDESIVIR 100 MG/NS 250 ML 100 MG/250 ML BAG 250 MG IVPB (20:18)
[2019-12-05 22:58] LABS: Legionella pneumophila Ag Ur Not Detected (Not Detected)
[2019-12-06] VITALS (17 sets, daily range): BP systolic 116–144; BP diastolic 68–92; PULSE 51–82; RESP 18–118; TEMP 36.1–36.6; O2SAT 90–98
[2019-12-06 04:29] LABS: Hematocrit 40.9 % (42.0-52.0); Hemoglobin 13.7 g/dL (14.0-18.0); Mean Corpuscular HGB Conc 33.5 g/dl (32-36); Mean Corpuscular Hemoglobin 31.6 pg (26-34); Mean Corpuscular Volume 94.2 fl (80-100); Mean Platelet Volume 9.1 fl (7.4-10.4); Platelet Count Result 442 k/mm3 (150-375); Red Blood Count 4.34 M/mm3 (4.6-6.20); Red Cell Distribution Width 12.5 % (11.5-14.5); White Blood Count 10.3 K/mm3 (4.5-10.0)
[2019-12-06 04:45] LABS: Anion Gap 6 mmol/L (8-16); Blood Urea Nitrogen 17 mg/dL (9-20); Calcium 8.4 mg/dL (8.4-10.2); Carbon Dioxide 30 mmol/L (22-30); Chloride 98 mmol/L (98-107); Estimated CRCL calculation 121 ml/min; Estimated Glomerular Filt Rate > 60; Glucose 136 mg/dL (75-110); Magnesium 2.3 mg/dL (1.6-2.3); Phosphorus 3.9 mg/dL (2.5-4.5); Potassium 4.2 mmol/L (3.4-5.0); Sodium 134 mmol/L (137-145)
[2019-12-06] MEDS: ALBUTEROL SULFATE (*SP) AEROSOL 1 PUFF 2 PUFF INHALATION ×5 (07:59→20:13)
[2019-12-06] MEDS: ENOXAPARIN 40 MG/0.4 ML SYRINGE SUB-Q (08:07)
[2019-12-06] MEDS: guaiFENesin 600 MG/DEXTROMETHORPHAN 30 MG SR TAB 12 HR 1 TAB PO ×2 (08:08→20:57)
[2019-12-06] MEDS: BENZONATATE 100 MG CAPSULE 200 MG PO ×2 (08:08→12:36)
[2019-12-06] MEDS: ASPIRIN 81 MG CHEWABLE TABLET PO (08:08)
[2019-12-06] MEDS: DEXAMETHASONE SOD PHOS INJ 4 MG/ML VIAL 6 MG IV PUSH (08:08)
[2019-12-06] MEDS: ATORVASTATIN 20 MG TABLET PO (08:08)
[2019-12-06] MEDS: FUROSEMIDE INJ 40 MG/4 ML VIAL IV PUSH (10:23)
--- NOTE | 2019-12-06 11:44 | WPDINTPN ---
Progress Note: A&P Assessment and Plan (1) Acute respiratory failure with hypoxia: Code(s): J96.01 - Acute respiratory failure with hypoxia Status: Acute Assessment and Plan: patient with acute hypoxic respiratory failure likely related to COVID-19 pneumonia - patient was also febrile at home, has been started on azithromycin and ceftriaxone ( start date 12/01/2019) - He has been weaned down to nasal cannula with 12 L from high-flow oxygen yesterday. Will continue to wean oxygen and keep his oxygen saturation above 90%. - complaints of cough now with congestion and sputum production, continue Tessalon Perles and Mucinex I will give a dose of Lasix today. He had a net negative fluid balance of 1.3 L [place] 24 after he received 1 dose of Lasix yesterday. (2) Pneumonia due to COVID-19 virus: Code(s): U07.1 - COVID-19; J12.89 - Other viral pneumonia Status: Acute Assessment and Plan: Patient positive for SARS-CoV-2 PCR, presents with COVID-19 pneumonia with hypoxia - continue antibiotics as above. I will stop azithromycin today after completing 5 day course. He will continue ceftriaxone for total of 7 days. - bronchodilators - Continue dexamethasone for a total of 10 days. He has finished his remdisivir yesterday and was stopped. - received convalescent plasma on 12/02/2019 - continue airborne, droplet and contact isolation /precautions - inflammatory markers trending down, will continue to follow (3) Hematuria: Code(s): R31.9 - Hematuria, unspecified Status: Acute Assessment and Plan: Resolved -will continue to monitor if he develops any hematuria will have Urology evaluate the patient (4) DVT prophylaxis: Code(s): Z29.9 - Encounter for prophylactic measures, unspecified Status: Acute Assessment and Plan: continue Lovenox 40 mg SQ q.24 hours (5) Dietary counseling and surveillance: Code(s): Z71.3 - Dietary counseling and surveillance Status: Acute Assessment and Plan: patient on regular diet Additional Plan discussed with patient updated with his condition and plan of care. I answered all questions code status: Full code Out of bed to chair today. PT OT consult. He will be downgraded to IMU status later today. Subjective Date/time seen: 12/06/19 11:44 59-year-old white male with history hyperlipidemia and factor 5 Leiden mutation admitted from [facility] with respiratory failure and COVID pneumonia. He was weaned down to nasal cannula with 12 L from high-flow oxygen yesterday. Subjectively he is feeling much better and his symptoms has improved significantly. He was given Lasix yesterday and he has a net negative fluid balance of 1.3 in the last 24 hours. He is less tachypneic today. Chest x-ray still with bilateral airspace disease with no significant improvement. Review of Systems Review of Systems: All systems reviewed & are unremarkable except as noted in HPI and below Exam Const: General: comfortable and no acute distress HENMT: Mouth: Yes moist mucous membranes Other: Oxygen supplementation via nasal cannula Eyes: Sclera: sclerae normal Pupils: Equal, round and reactive pupils present Neck: Neck: supple Resp: Effort & Inspection: normal respiratory effort Auscultation: rales, no wheezes and diminished lung sounds Cardio: Rate: regular rate and bradycardic GI: Inspection: non-distended Auscultation: normal bowel sounds : Other: deferred Urinary Catheter: Urinary Catheter: urine clear Skin: General skin exam: normal color and no rashes or lesions noted Neuro: Cranial nerves: Yes Equal, round and reactive pupils present Other: patient is awake, alert, oriented x3, nonfocal, answers to questions appropriately and follows simple commands in all extremities Extrem: General: normal to inspection, no edema and no pedal edema Psych:
--- NOTE | 2019-12-06 14:19 | PM.IMPN ---
Progress Note: A&P Assessment and Plan (1) Acute respiratory failure with hypoxia: Code(s): J96.01 - Acute respiratory failure with hypoxia Status: Acute Assessment and Plan: secondary to COVID pneumonia. weaned to 10L NC now. And will continue to wean as tolerated. metered dose inhalers and p.o dexamethasone (2) Bilateral pneumonia: Code(s): J18.9 - Pneumonia, unspecified organism Status: Acute Assessment and Plan: suspect all COVID pneumonia but has empirically placed on antibiotics initially(D#5) also since has had fevers some 7 days. antigen markers strep negative and Legionella still pending (3) COVID-19: Code(s): U07.1 - COVID-19 Status: Acute Assessment and Plan: receiving Decadron (D#5), remdesivir(D#5 finished 12/04), and convalescent plasma 12/01 (4) Hyponatremia: Code(s): E87.1 - Hypo-osmolality and hyponatremia Status: Acute Assessment and Plan: Na 134 today and continue to monitor (5) Hematuria: Code(s): R31.9 - Hematuria, unspecified Status: Acute Assessment and Plan: few RBCs will on check renal sonogram or CT abdomen before discharge (6) Factor 5 Leiden mutation, heterozygous: Code(s): D68.51 - Activated protein C resistance Status: Acute Assessment and Plan: no history of DVT or PE in the past though there is family history. B.i.d. Lovenox for DVT prophylaxis (7) Hyperlipidemia: Code(s): E78.5 - Hyperlipidemia, unspecified Status: Inactive Assessment and Plan: continue statin Subjective Date/time seen: 12/06/19 14:19 Interval history: date of visit 12/05. 59-year-old white male with history hyperlipidemia and factor 5 Leiden mutation admitted from [facility] with respiratory failure and COVID pneumonia. Comfortable in bed now with NC . Appetite better and feels better overall .. cough a little more productive, up in chair Exam Narrative: Exam Narrative: blood pressure 116/74 pulse 82 sat 96% on 10 L NC, afebrile General: NARD sitting in chair HEENT: Pupils reactive. sclera anicteric . Neck: Supple. No JVD. Respiratory: . He does not seem in any significant respiratory distress. Basilar crackles less but still present Cardiovascular: Regular rate and rhythm with S1-S2. Gastrointestinal: Abdomen is soft, nontender, and nondistended with positive bowel sounds. Skin: Warm and dry. No rash or lesions Extremities: No edema. Radial and pedal pulses intact. Neurological: Alert. . No gross focal deficits Psychiatric: Pleasant and cooperative with normal mood and affect. . Objective Data Vital Signs Vital Signs: Vital Signs - 24 hr 12/05/19 15:15 12/05/19 16:00 12/05/19 16:02 Temperature 36.8 C Pulse Rate 67 68 Respiratory Rate 30 H 31 H Blood Pressure 124/77 Pulse Oximetry 90 90 90 12/05/19 18:00 12/05/19 20:00 12/05/19 21:43 Temperature 36.1 C L Pulse Rate 67 62 663 H Respiratory Rate 28 H 22 H 26 H Blood Pressure 122/78 126/82 Pulse Oximetry 91 93 92 12/05/19 22:00 12/06/19 00:00 12/06/19 02:00 Temperature 36.4 C L Pulse Rate 60 56 L 65 Respiratory Rate 20 21 H 25 H Blood Pressure 121/76 138/81 118/82 Pulse Oximetry 97 94 90 12/06/19 04:00 12/06/19 06:00 12/06/19 08:00 Temperature 36.1 C L 36.5 C Pulse Rate 61 54 L 74 Respiratory Rate 19 19 27 H Blood Pressure 120/68 116/70 118/75 Pulse Oximetry 90 94 93 12/06/19 10:00 12/06/19 11:29 12/06/19 11:41 Temperature Pulse Rate 75 81 76 Respiratory Rate 24 H 18 24 H Blood Pressure 117/75 Pulse Oximetry 93 97 96 Intake/Output Intake/Output: Intake & Output 12/03/19 12/04/19 12/05/19 12/06/19 23:59 23:59 23:59 23:59 Intake Total 2180 2220 2100 690 Output Total 4278 0133 1316 3421 Balance -295 931 -1275 -373 Meds/Results Medications: Active Medications Generic Name Dose Route Start Last Admin Trade Name Freq
[2019-12-07] VITALS (14 sets, daily range): BP systolic 107–135; BP diastolic 52–87; PULSE 57–80; RESP 19–23; TEMP 35.8–36.8; O2SAT 90–97
[2019-12-07 04:58] LABS: Hematocrit 44.4 % (42.0-52.0); Hemoglobin 14.8 g/dL (14.0-18.0); Mean Corpuscular HGB Conc 33.3 g/dl (32-36); Mean Corpuscular Hemoglobin 31.8 pg (26-34); Mean Corpuscular Volume 95.5 fl (80-100); Mean Platelet Volume 9.3 fl (7.4-10.4); Platelet Count Result 454 k/mm3 (150-375); Red Blood Count 4.65 M/mm3 (4.6-6.20); Red Cell Distribution Width 12.7 % (11.5-14.5); White Blood Count 12.5 K/mm3 (4.5-10.0)
[2019-12-07 06:19] LABS: Anion Gap 10 mmol/L (8-16); Blood Urea Nitrogen 21 mg/dL (9-20); CRP 5.8 mg/dL (<1.0); Calcium 8.9 mg/dL (8.4-10.2); Carbon Dioxide 30 mmol/L (22-30); Chloride 95 mmol/L (98-107); Estimated CRCL calculation 105 ml/min; Estimated Glomerular Filt Rate > 60; Glucose 135 mg/dL (75-110); Magnesium 2.4 mg/dL (1.6-2.3); Phosphorus 4.1 mg/dL (2.5-4.5); Potassium 4.4 mmol/L (3.4-5.0); Sodium 135 mmol/L (137-145)
[2019-12-07] MEDS: DEXAMETHASONE SOD PHOS INJ 4 MG/ML VIAL 6 MG IV PUSH (08:03)
[2019-12-07] MEDS: ENOXAPARIN 40 MG/0.4 ML SYRINGE SUB-Q (08:03)
[2019-12-07] MEDS: BENZONATATE 100 MG CAPSULE 200 MG PO ×3 (08:04→16:17)
[2019-12-07] MEDS: guaiFENesin 600 MG/DEXTROMETHORPHAN 30 MG SR TAB 12 HR 1 TAB PO ×2 (08:04→20:11)
[2019-12-07] MEDS: ATORVASTATIN 20 MG TABLET PO (08:04)
[2019-12-07] MEDS: ASPIRIN 81 MG CHEWABLE TABLET PO (08:04)
[2019-12-07] MEDS: ALBUTEROL SULFATE (*SP) AEROSOL 1 PUFF 2 PUFF INHALATION ×3 (08:15→20:45)
--- NOTE | 2019-12-07 13:10 | PC.NURSE ---
This patient, Rico Cardenas, was transferred to [ [id number]] on 12/07/19 at 1323. Personal belongings sent with patient. Report given to [ ]. Appropriate documentation sent with patient. Report given to HIEU Martinez @ [phone]. Personal belongings sent w/ pt. Pt transferred via wheelchair w/ oxygen in place, no issues noted
--- NOTE | 2019-12-07 14:55 | PCDIET ---
Weekly nutritional screen. Patient is tolerating current diet with adequate intake. No weight loss reported. No nutritional needs at this time.
--- NOTE | 2019-12-07 16:45 | PM.IMPN ---
Progress Note: A&P Assessment and Plan (1) Acute respiratory failure with hypoxia: Code(s): J96.01 - Acute respiratory failure with hypoxia Status: Acute Assessment and Plan: secondary to COVID pneumonia. weaned to 3L NC now. And will continue to wean as tolerated. metered dose inhalers and p.o dexamethasone (2) Bilateral pneumonia: Code(s): J18.9 - Pneumonia, unspecified organism Status: Acute Assessment and Plan: suspect all COVID pneumonia but has empirically placed on antibiotics initially(D#7) also since has had fevers some 7 days. antigen markers strep and legionella negative so will d/c ceftriaxone too (3) COVID-19: Code(s): U07.1 - COVID-19 Status: Acute Assessment and Plan: receiving Decadron (D#7 ), remdesivir(D#5 finished 12/04), and convalescent plasma 12/01 inflammatory markers all decreased and steady (4) Hyponatremia: Code(s): E87.1 - Hypo-osmolality and hyponatremia Status: Acute Assessment and Plan: Na 135 today and continue to monitor (5) Hematuria: Code(s): R31.9 - Hematuria, unspecified Status: Acute Assessment and Plan: few RBCs will on check renal sonogram am 12/07 (6) Factor 5 Leiden mutation, heterozygous: Code(s): D68.51 - Activated protein C resistance Status: Acute Assessment and Plan: no history of DVT or PE in the past though there is family history. B.i.d. Lovenox for DVT prophylaxis and may want to continue at discharge (7) Hyperlipidemia: Code(s): E78.5 - Hyperlipidemia, unspecified Status: Inactive Assessment and Plan: continue statin Subjective Date/time seen: 12/07/19 16:45 Interval history: date of visit 12/06. 59-year-old white male with history hyperlipidemia and factor 5 Leiden mutation admitted from [facility] with respiratory failure and COVID pneumonia. Comfortable in bed now with NC . Appetite better and feels better overall .. cough a little more productive at times, up in chair Exam Narrative: Exam Narrative: blood pressure 108/74 pulse 80 sat 92% on 3 L NC, afebrile General: NARD lying comfortable in bed HEENT: Pupils reactive. sclera anicteric . Neck: Supple. No JVD. Respiratory: . He does not seem in any significant respiratory distress. Basilar crackles faint LLL post Cardiovascular: Regular rate and rhythm with S1-S2. Gastrointestinal: Abdomen is soft, nontender, and nondistended with positive bowel sounds. Skin: Warm and dry. No rash or lesions Extremities: No edema. Radial and pedal pulses intact. Neurological: Alert. . No gross focal deficits Psychiatric: Pleasant and cooperative with normal mood and affect. . Objective Data Vital Signs Vital Signs: Vital Signs - 24 hr 12/06/19 17:15 12/06/19 17:59 12/06/19 20:00 Temperature 36.6 C Pulse Rate 79 82 73 Respiratory Rate 118 H 24 H 18 Blood Pressure 119/78 118/76 Pulse Oximetry 91 94 94 12/06/19 20:15 12/06/19 20:50 12/06/19 22:00 Temperature Pulse Rate 81 81 70 Respiratory Rate 24 H 24 H 24 H Blood Pressure 120/77 Pulse Oximetry 92 97 12/07/19 00:00 12/07/19 02:00 12/07/19 04:00 Temperature 36.3 C L 35.8 C L Pulse Rate 67 58 L 65 Respiratory Rate 20 20 Blood Pressure 125/78 115/74 Pulse Oximetry 95 97 12/07/19 04:30 12/07/19 06:00 12/07/19 08:00 Temperature 36.2 C L Pulse Rate 57 L 66 Respiratory Rate 19 23 H Blood Pressure 116/73 108/74 Pulse Oximetry 96 94 92 12/07/19 08:25 12/07/19 09:05 12/07/19 10:00 Temperature Pulse Rate 71 80 66 Respiratory Rate 20 20 Blood Pressure Pulse Oximetry 93 90 12/07/19 12:45 Temperature Pulse Rate 66 Respiratory Rate 20 Blood Pressure Pulse Oximetry 90 Intake/Output Intake/Output: Intake & Output 12/04/19 12/05/19 12/06/19 12/07/19 23:59 23:59 23:59 23:59 Intake Total 2220 2100 1480 730 Output Total 1625 3100 2550 11
--- NOTE | 2019-12-07 17:52 | PCRCNOTE ---
Window of time for administration has passed. See next scheduled administration.
[2019-12-08] VITALS (9 sets, daily range): BP systolic 103–112; BP diastolic 65–72; PULSE 63–78; RESP 18–20; TEMP 36.5–36.9; O2SAT 90–95
[2019-12-08] MEDS: ALBUTEROL SULFATE (*SP) AEROSOL 1 PUFF 2 PUFF INHALATION ×4 (08:12→19:55)
[2019-12-08] MEDS: guaiFENesin 600 MG/DEXTROMETHORPHAN 30 MG SR TAB 12 HR 1 TAB PO ×2 (08:41→20:54)
[2019-12-08] MEDS: ASPIRIN 81 MG CHEWABLE TABLET PO (08:41)
[2019-12-08] MEDS: DEXAMETHASONE SOD PHOS INJ 4 MG/ML VIAL 6 MG IV PUSH (08:41)
[2019-12-08] MEDS: BENZONATATE 100 MG CAPSULE 200 MG PO ×3 (08:41→18:42)
[2019-12-08] MEDS: ENOXAPARIN 40 MG/0.4 ML SYRINGE SUB-Q (08:41)
[2019-12-08] MEDS: ATORVASTATIN 20 MG TABLET PO (08:41)
--- NOTE | 2019-12-08 10:19 | PM.IMPN ---
Progress Note: A&P Assessment and Plan (1) Acute respiratory failure with hypoxia: Code(s): J96.01 - Acute respiratory failure with hypoxia Status: Acute Assessment and Plan: Secondary to COVID pneumonia. Stable at 3-5L NC. And will continue to wean as tolerated. Continue metered dose inhalers and p.o dexamethasone (2) Bilateral pneumonia: Code(s): J18.9 - Pneumonia, unspecified organism Status: Acute Assessment and Plan: Suspect all COVID pneumonia but was empirically placed on antibiotics. Antigen markers for strep and legionella negative. Abx have been stopped. (3) COVID-19: Code(s): U07.1 - COVID-19 Status: Acute Assessment and Plan: Patient completed remdesivir(D#5 finished 12/04), and convalescent plasma 12/01. He remains on Decadron (D#8). CRP, ferritin and DDimer higher. Continue supportive care. (4) Hyponatremia: Code(s): E87.1 - Hypo-osmolality and hyponatremia Status: Acute Assessment and Plan: Na 135 again today. continue to monitor. (5) Hematuria: Code(s): R31.9 - Hematuria, unspecified Status: Acute Assessment and Plan: Few red blood cells noted on urinalysis. Renal ultrasound showed normal kidneys no hydronephrosis. (6) Factor 5 Leiden mutation, heterozygous: Code(s): D68.51 - Activated protein C resistance Status: Acute Assessment and Plan: No history of DVT or PE in the past though there is family history. B.i.d. Lovenox for DVT prophylaxis and may want to continue at discharge (7) Hyperlipidemia: Code(s): E78.5 - Hyperlipidemia, unspecified Status: Inactive Assessment and Plan: LFTs have been trending downward. Lipitor already has baylee resumed. Repeat LFTs in morning. Subjective Date/time seen: 12/08/19 10:19 Interval history: Date of visit 12/07 59yo male with HTN and factor 5 Leiden mutation admitted from [facility] with respiratory failure and COVID pneumonia. Assuming care. CHart reviewed Patient feels bart. SLept poorly from light in the room and new environs. Minimal SCANLON. No SOB. Minimal cough that is occasionally productive. No CP. Eating okay. Exam Narrative: Exam Narrative: AF 98.5 103/69 78 20 90% 4L Gen - NARD lying semi-recumbent in bed Chest - bilateral mid and lower lung field inspiratory crackles, no conversational dyspnea CV - RRR S1/S2 Abd - Soft, NT/ND, Positive BS Ext - No pedal edema Neuro - Alert and appropriate Psych - Nml mood and affect Skin - Warm and dry Objective Data Vital Signs Vital Signs: Vital Signs - 24 hr 12/07/19 12:45 12/07/19 13:20 12/07/19 16:00 Temperature 97.5 F L 98.0 F Pulse Rate 66 67 68 Respiratory Rate 20 20 20 Blood Pressure 107/52 L 135/87 Pulse Oximetry 90 93 94 12/07/19 20:00 12/07/19 20:45 12/08/19 00:00 Temperature 98.2 F 98.2 F Pulse Rate 70 68 Respiratory Rate 22 H 20 Blood Pressure 115/74 110/72 Pulse Oximetry 92 91 91 12/08/19 04:00 12/08/19 08:16 Temperature 98.5 F Pulse Rate 63 78 Respiratory Rate 20 20 Blood Pressure 103/69 Pulse Oximetry 91 90 Intake/Output Intake/Output: Intake & Output 12/05/19 12/06/19 12/07/19 12/08/19 23:59 23:59 23:59 23:59 Intake Total 2100 1480 1520 350 Output Total 3100 2550 1150 400 Balance -1000 -1070 370 -50 Meds/Results Medications: Active Medications Generic Name Dose Route Start Last Admin Trade Name Freq PRN Reason Stop Dose Admin Albuterol 2 puff 12/04/19 12:00 12/08/19 08:12 Albuterol Sulfate (*Sp) Aerosol 1 Puff INHALATION 2 puff QIDRT HIRAM Administration Aspirin 81 mg 12/02/19 09:00 12/08/19 08:41 Aspirin 81 Mg Chewable Tablet PO 01/01/20 09:01 81 mg DAILY HIRAM Administration Atorvastatin Calcium 20 mg 12/02/19 09:00 12/08/19 08:41 Atorvastatin 20 Mg Tablet PO 20 mg DAILY HIRAM Administration Benzonatate 200 mg
[2019-12-09] VITALS (7 sets, daily range): BP systolic 112–118; BP diastolic 67–74; PULSE 61–84; RESP 18–20; TEMP 36.4–36.9; O2SAT 90–95
[2019-12-09 06:27] LABS: Basophils Percent Auto 0.2 % (0.2-1.2); Eosinophils Absolute Auto 0.1 K/mm3 (0-0.3); Eosinophils Percent Auto 1.1 % (0-4.4); Hemoglobin 13.2 g/dL (14.0-18.0); Immature Granulocyte Absolute 0.39 K/mm3 (0.00-0.031); Immature Granulocyte Percent A 4.3 % (0-0.5); Lymphocytes Absolute Auto 1.38 K/mm3 (0.9-3.2); Lymphocytes Percent Auto 15.1 % (18.3-44.2); Mean Corpuscular Hemoglobin 30.8 pg (26-34); Mean Corpuscular Volume 93.5 fl (80-100); Mean Platelet Volume 9.1 fl (7.4-10.4); Monocytes Absolute Auto 0.7 K/mm3 (0.1-0.6); Neutrophils Absolute Auto 6.5 K/mm3 (1.3-6.7); Neutrophils Percent Auto 71.3 % (45.5-73.1); Platelet Count Result 444 k/mm3 (150-375); Red Blood Count 4.28 M/mm3 (4.6-6.20); Red Cell Distribution Width 12.2 % (11.5-14.5); White Blood Count 9.1 K/mm3 (4.5-10.0)
[2019-12-09 06:38] LABS: D Dimer 0.74 ug/mL (<0.48)
[2019-12-09 06:43] LABS: Alanine Aminotransferase 48 U/L (4-50); Albumin Level 3.3 g/dL (3.5-5.1); Alkaline Phosphatase 87 U/L (38-126); Anion Gap 3 mmol/L (8-16); Aspartate Amino Transferase 32 U/L (17-59); Bilirubin,Total 0.9 mg/dL (0.2-1.3); Blood Urea Nitrogen 17 mg/dL (9-20); CRP 3.1 mg/dL (<1.0); Calcium 8.6 mg/dL (8.4-10.2); Carbon Dioxide 34 mmol/L (22-30); Chloride 97 mmol/L (98-107); Estimated CRCL calculation 107 ml/min; Estimated Glomerular Filt Rate > 60; Glucose 114 mg/dL (75-110); Potassium 4.5 mmol/L (3.4-5.0); Sodium 134 mmol/L (137-145)
[2019-12-09] MEDS: ALBUTEROL SULFATE (*SP) AEROSOL 1 PUFF 2 PUFF INHALATION ×2 (08:40→12:45)
[2019-12-09] MEDS: ATORVASTATIN 20 MG TABLET PO (09:35)
[2019-12-09] MEDS: DEXAMETHASONE SOD PHOS INJ 4 MG/ML VIAL 6 MG IV PUSH (09:35)
[2019-12-09] MEDS: ASPIRIN 81 MG CHEWABLE TABLET PO (09:35)
[2019-12-09] MEDS: BENZONATATE 100 MG CAPSULE 200 MG PO ×3 (09:36→17:12)
[2019-12-09] MEDS: guaiFENesin 600 MG/DEXTROMETHORPHAN 30 MG SR TAB 12 HR 1 TAB PO (09:36)
[2019-12-09] MEDS: ENOXAPARIN 40 MG/0.4 ML SYRINGE SUB-Q (09:36)
--- NOTE | 2019-12-09 16:10 | HOMEO2EVAL ---
Home Oxygen Evaluation RC: Home Oxygen (O2) Evaluation Start: 12/09/19 07:23 Freq: ONCE Status: Active Protocol: RPE Activity Type Activity Date Activity User E-Sign Co-Sign Detail Recorded Client Recorded Date Recorded By Document 12/09/19 15:50 [employer] [email or web address] 12/09/19 16:10 DJO Document 12/09/19 15:55 DJO [email or web address] 12/09/19 16:10 DJO Document 12/09/19 16:05 [employer] 4 [employer] [email or web address] 12/09/19 16:10 DJO 12/09/19 12/09/19 12/09/19 15:50 15:55 16:05 Home O2 Evaluation Test Phase Resting Exercise Resting Oxygen Delivery Room Air Room Air Room Air Pulse Oximetry (90-100 %) 91 90 91 Pulse Rate (60-100 beats/min) 68 84 65 Activity Tolerance Good Treatment Charges O2 Evaluation
--- NOTE | 2019-12-09 16:11 | PCRCNOTE ---
HOME O2 EVAL COMPLETE, NO REQUIREMENTS
--- NOTE | 2019-12-09 16:38 | PM.DS ---
DS: Admitting Diagnosis Admitting Diagnosis Admitting Diagnosis: COVID Pneumonia DS: Discharge Diagnosis Discharge Diagnosis (1) Acute respiratory failure with hypoxia: Code(s): J96.01 - Acute respiratory failure with hypoxia Status: Acute Assessment and Plan: Secondary to COVID pneumonia. Was on high flow NC but clinically improved and able to weaned to room air. (2) Bilateral pneumonia: Code(s): J18.9 - Pneumonia, unspecified organism Status: Acute Assessment and Plan: Suspect all related COVID pneumonia but was empirically placed on antibiotics. Antigen markers for strep and legionella negative. Abx have been stopped. (3) COVID-19: Code(s): U07.1 - COVID-19 Status: Acute Assessment and Plan: Patient completed 5 days of remdesivir and convalescent plasma 12/01. He was treated with Decadron and completed 9 days. Inflammatory markers CRP, ferritin and DDimer were followed. (4) Hyponatremia: Code(s): E87.1 - Hypo-osmolality and hyponatremia Status: Acute Assessment and Plan: Na 130 on admisison but improved to 134. (5) Hematuria: Code(s): R31.9 - Hematuria, unspecified Status: Acute Assessment and Plan: Few red blood cells noted on urinalysis. Renal ultrasound showed normal kidneys no hydronephrosis. Probably related to his current infection. Can be followed by his primary care provider once he is over his current infection. (6) Factor 5 Leiden mutation, heterozygous: Code(s): D68.51 - Activated protein C resistance Status: Acute Assessment and Plan: No history of DVT or PE in the past though there is family history. He was covered with Lovenox. Will not proceed with Lovenox at discharge but patient informed to be up ambulating frequently at home. [place] [address] [place] and states not a problem. (7) Hyperlipidemia: Code(s): E78.5 - Hyperlipidemia, unspecified Status: Inactive Assessment and Plan: LFTs have been trending downward. Lipitor already has baylee resumed. DS: Summary Hospital Course Reason for hospitalization: 59yo male here for COVID. See H&P Hospital Course: As above Time Spent with Patient Time attestation: Total time spent providing and/or coordinating discharge services:32 minutes Time spent: Greater than 30 minutes Exam Narrative: Exam Narrative: AF 98.4 118/67 65 18 91% ra Gen - NARD sitting up in the chair Chest - few scattered inspiratory crackles, nml RR. No conversational dyspnea CV - RRR S1/S2 Abd - Soft, NT/ND, Positive BS Ext - No pedal edema Psych - Nml mood and affect Skin - Warm and dry DS: Data Data Completed and Pending Labs on day of discharge: Labs from last 24 hours 12/09/19 12/09/19 12/09/19 06:18 06:18 06:18 WBC 9.1 RBC 4.28 L Hgb 13.2 L Hct 40.0 L MCV 93.5 MCH 30.8 MCHC 33.0 RDW 12.2 Plt Count 444 H MPV 9.1 Immature Gran % (Auto) 4.3 H Neut % (Auto) 71.3 Lymph % (Auto) 15.1 L [place] % (Auto) 8.0 Eos % (Auto) 1.1 Baso % (Auto) 0.2 Lymph # (Auto) 1.38 [place] # (Auto) 0.7 H Eos # (Auto) 0.1 Baso # (Auto) 0.0 Abs Immat Gran (auto) 0.39 H Absolute Neuts (auto) 6.5 Absolute Nucleated RBC 0.0 Nucleated RBC % 0.0 D-Dimer Sodium 134 L Potassium 4.5 Chloride 97 L Carbon Dioxide 34 H Anion Gap 3 L BUN 17 Creatinine 0.80 Estim Creat Clear Calc 107 Estimated GFR > 60 Glucose 114 H Calcium 8.6 Ferritin 483.00 H Total Bilirubin 0.9 AST 32 ALT 48 Alkaline Phosphatase 87 C-Reactive Protein 3.1 H Total Protein 7.0 Albumin 3.3 L 12/09/19 06:18 WBC RBC Hgb Hct MCV MCH MCHC RDW Plt Count MPV Immature Gran % (Auto) Neut % (Auto) Lymph % (Auto) [place] % (Auto) Eos % (Auto) Baso % (Auto) Lymph # (Auto) [place] # (Auto) Eos # (A
--- NOTE | 2019-12-09 17:50 | PC.NURSE ---
RX called to [facility] for Benzonatate 200mg TID prn cough #[address] [place]
== END 2019-12-09 17:35 | disposition home or self-care (01) | DRG 177 ==
LOC: ANHICU 12-03 15:49 → ANH3MEDSUR 12-08 06:40 → ANHICU 12-10 14:53
PROVIDERS: Internal Medicine; Internal Medicine Critical Care Medicine; Physician Assistant; Admitting Provider Family Medicine; PCP Internal Medicine; Visit Provider Internal Medicine
DX: U07.1 COVID-19 (principal); J12.89 Other viral pneumonia; J96.01 Acute respiratory failure with hypoxia; E87.1 Hypo-osmolality and hyponatremia; D68.51 Activated protein C resistance; R31.9 Hematuria, unspecified; E78.5 Hyperlipidemia, unspecified; Z96.643 Presence of artificial hip joint, bilateral; Z79.82 Long term (current) use of aspirin; Z79.899 Other long term (current) drug therapy; Z85.828 Personal history of other malignant neoplasm of skin; Z98.1 Arthrodesis status; Z88.0 Allergy status to penicillin
CPT/HCPCS: 36415; 36430; 36600; 71045; 76775; 80048; 80053; 80076; 81001; 82550; 82570; 82728; 82805; 83615; 83735; 83930; 83935; 84100; 84145; 84300; 84460; 85025; 85027; 85380; 85610; 85730; 86140; 86900; 86901; 87449; 87899; 94618; 94640; A9270; J0456; J0696; J1100; J1650; J1940; J7050; P9059